=== PATIENT | male | born 1985 | race Caucasian/White ===

== ENCOUNTER 2023-10-15 07:44 | Observation (INO) ==
[2023-10-15] MEDS: Lactated Ringers 1000 ml BAG 1,000 ML IV ONE ×2 (08:18→11:39)
[2023-10-15] MEDS: Ondansetron 4 mg VIAL 2 MG/ML 2 ml VIAL IV ONE (08:19)
[2023-10-15] MEDS: Morphine 4 MG/ML VIAL (1 ml) IV ONE ×2 (08:19→11:04)
[2023-10-15 08:39] LABS: ABS Lymphocytes 0.9 10^3/uL (1.0-4.8); ABS Monocytes 1.5 10^3/uL (0.0-1.1); ABS Neutrophils 13.7 10^3/uL (1.5-7.6); ABS Nucleated RBC 0.01 10^3/ul; Eosinophil % 0.1 %; Hematocrit 47.3 % (38-53); Hemoglobin 16.7 g/dL (13.2-16.3); Lymphocyte % 5.9 %; Mean Corpuscular Hemoglobin 30.8 pg (27-33); Mean Corpuscular Hgb Conc 35.3 g/dL (31-36); Mean Corpuscular Volume 87.3 fL (80-97); Mean Platelet Volume 7.1 fL (7.5-11.2); Nucleated Red Blood Cells % 0.1 %/100WBC (0.0-0.8); Platelet Count 250 10^3/uL (150-450); Red Blood Count 5.42 10^6/uL (4.06-5.63); Red Cell Distribution Width 13.7 % (12-17); White Blood Count 16.2 10^3/uL (3.6-10.2)
[2023-10-15 08:55] LABS: Albumin 4.7 g/dL (3.2-5.2); Albumin/Globulin Ratio 1.7 (1-3); Calcium 9.2 mg/dL (8.6-10.3); Creatinine, Serum 0.9 mg/dL (0.67-1.17); Globulin 2.7 g/dL (2-4); Potassium 3.9 mmol/L (3.5-5.0); Total Bilirubin 0.9 mg/dL (0.2-1.0); Total Protein 7.4 g/dL (6.4-8.9); eGFR CKD-EPI 111.4 (>60)
[2023-10-15 09:49] LABS: Urine Appearance Clear; Urine Bilirubin Negative (Negative); Urine Blood Negative (Negative); Urine Color Yellow; Urine Glucose Negative (Negative); Urine Ketones Negative (Negative); Urine Nitrite Negative (Negative); Urine Protein Negative (Negative); Urine Urobilinogen Negative (Negative)
[2023-10-15] MEDS ORDERED: Ondansetron 4 mg VIAL 2 MG/ML 2 ml VIAL IV PRN (13:45)
[2023-10-15] MEDS ORDERED: HYDROmorphone 1 MG/1 ML SYRINGE IV SLOW PU PRN (13:45)
[2023-10-15] MEDS ORDERED: Calcium Carb (TUMS) 500 mg CHEW TAB PO PRN (13:50)
[2023-10-15] MEDS: D5W 1/2 NS 1000 ml BAG 1,000 ML IV SCH (14:33)
[2023-10-15] MEDS: Piperacillin/Tazobac 3.375 BAG 3.375 GM/100 ML BAG IV SCH (16:51)
[2023-10-15] MEDS ORDERED: Piperacillin/Tazobac 3.375 BAG 3.375 GM/100 ML BAG IV SCH (22:00)
[2023-10-16] MEDS ORDERED: Glycopyrrolate IV 0.2 MG/ML 1 ML VIAL ONE (09:02)
[2023-10-16] MEDS ORDERED: Lidocaine 1% w EPI 1:100,000 MDV 20 ML VIAL ONE (09:02)
[2023-10-16] MEDS ORDERED: Propofol 10 MG/ML 20 ML BTL ONE ×2 (09:02→09:56)
[2023-10-16] MEDS ORDERED: Ondansetron 4 mg VIAL 2 MG/ML 2 ml VIAL ONE (09:02)
[2023-10-16] MEDS ORDERED: Dexamethasone IV 4 MG/ML VIAL 1 ml VIAL ONE (09:02)
[2023-10-16] MEDS ORDERED: Bupivacaine 0.25% SDV 30 ML ONE (09:03)
[2023-10-16] MEDS ORDERED: Midazolam 2 mg/2 ml VIAL 1 mg/ml 2 ml VIAL (2 mg) ONE (09:07)
[2023-10-16] MEDS ORDERED: Rocuronium 50 mg VIAL 10 mg/ml 5 ml VIAL (50 mg) ONE (09:08)
[2023-10-16] MEDS ORDERED: HYDROmorphone 0.5 MG/0.5 ML SYRINGE ONE (09:08)
[2023-10-16] MEDS ORDERED: fentaNYL 100 mcg/2 ml 50 MCG/ML VIAL ONE ×2 (09:08→10:14)
[2023-10-16] MEDS ORDERED: Lidocaine 2% PF 5 ML VIAL ONE (09:09)
[2023-10-16] MEDS ORDERED: fentaNYL 100 mcg/2 ml 50 MCG/ML VIAL IV PRN (09:17)
[2023-10-16] MEDS ORDERED: Ondansetron 4 mg VIAL 2 MG/ML 2 ml VIAL IV PRN (09:17)
[2023-10-16] MEDS ORDERED: Metoclopramide 5 MG/ML VIAL (10 mg) IV PRN (09:17)
[2023-10-16] MEDS ORDERED: Naloxone 0.4 mg VIAL 0.4 mg/ml 1 ml VIAL IV PRN (09:17)
[2023-10-16] MEDS ORDERED: HYDROcodone/ACETAMIN 5/325 mg TAB PO PRN (09:17)
[2023-10-16] MEDS ORDERED: Sodium Citrate/Citric Acid LIQ 15 ML UDC PO ONE (09:17)
[2023-10-16] MEDS ORDERED: Buffered Lidocaine 1% SYRIN 1 ml INTRADERM ONE (09:17)
[2023-10-16] MEDS ORDERED: Bupivacaine 0.5% SDV PF 30ML VIAL ONE (09:23)
[2023-10-16] MEDS ORDERED: Lactated Ringers 1000 ml BAG 1,000 ML IV SCH ×2 (10:00→11:00)
[2023-10-16] MEDS ORDERED: Esmolol 10 MG/ML 10 ML (100 mg) IV ONE (10:16)
[2023-10-16] MEDS ORDERED: Labetalol IV 5 MG/ML 20 ml VIAL ONE (10:46)
[2023-10-16 11:37] VITALS: BP 142/87
== END 2023-10-16 12:46 | disposition home or self-care (01) ==
LOC: ED 07:44 → EDHOLD 07:44 → SSU 15:00
PROVIDERS: ADMIT Surgery Surgical Critical Care; ATTEND Surgery Surgical Critical Care